=== PATIENT | female | born 1975 | race Caucasian/White ===

== ENCOUNTER 2017-10-01 02:50 | Emergency (ER) | payer SELFPAY ==
[~2017-10-01] VITALS: Ht 160 cm; Wt 74.0 kg
[~2017-10-01 02:50] MED LIST: DICL50 PO; HYDR-3533 PO; IBUP-238 PO; LEVO.15 PO; MEDR10 PO; MICR1TAB PO
[2017-10-01 02:52] VITALS: BP 160/92; PULSE 98; RESP 16; TEMP 98; O2SAT 99
[2017-10-01] MEDS ORDERED: MORPHINE SULFATE 2 MG/ML INJ IV PUSH ONE (03:30)
[2017-10-01] MEDS ORDERED: KETOROLAC TROMETHAMINE 30 MG/ML (IVP) VIAL IV PUSH ONE (03:30)
--- NOTE | 2017-10-01 04:41 | RADRPT ---
EXAM DATE/TIME: 10/01/2017 04:13 [facility] COMPARISON: SHOULDER LEFT LTD (2VWS), November 26, 2015, 23:23. INDICATIONS : Left shoulder pain. MEDICAL HISTORY : Dislocation of left shoulder. SURGICAL HISTORY : None. ENCOUNTER: Initial ACUITY: 1 day PAIN SCORE: 10/10 LOCATION: Left shoulder. FINDINGS: Two view examination of the left shoulder demonstrates anterior-inferior dislocation of the humeral h ead on the glenoid. The glenohumeral and acromioclavicular joints are maintained. Bony mineralizati on is normal. CONCLUSION: Anterior-inferior dislocation of the humeral head Frank Morales MD on October 01, 2017 at 4:39 Board Certified Radiologist. This report was verified electronically.
[2017-10-01 05:10] VITALS: O2SAT 100
[2017-10-01] MEDS ORDERED: PROPOFOL 200 MG/20 ML AMP IV ONE (05:15)
--- NOTE | 2017-10-01 05:30 | PD ---
HPI Chief Complaint: Injury Time Seen by Provider: 03:19 Travel History International Travel<30 days: No Contact w/Intl Traveler<30days: No Traveled to known affect area: No History of Present Illness HPI 42-year-old female came to the emergency room with history of left shoulder dislocation. Patient says this is her third time dislocating the same shoulder. She was playing with her dog when this happened. Last time was in 2012. Patient says she is in pain because of the dislocation on her left shoulder. She did not injure any other part of her body. [facility] Past Medical History Narrative Medical List of her past medical, surgical, social and family history is reviewed from the nursing note. Anemia: Yes Thyroid Disease: Yes ?: Not : 4 Para: 2 : 1 Past Surgical History Section: Yes (X 3) Social History Alcohol Use: Yes (2 XS WEEKLY) Tobacco Use: No Substance Use: No Allergies-Medications (Allergen,Severity, Reaction): Coded Allergies: sesame seed (Unverified Allergy, Intermediate, coughing, itchy throat, ) Comments List of her allergies reviewed from the nursing note. Reported Meds & Prescriptions Reported Meds & Active Scripts Active Lortab 5 mg/325 mg (Hydrocodone/Acetaminophen 5 mg/325 mg) 1 Tab 1-2 Tab PO Q6H PRN Voltaren (Diclofenac Sodium) 50 Mg Tabec 50 Mg PO TID Motrin (Ibuprofen) 800 Mg Tab 800 Mg PO TID Lortab 5 mg/325 mg (Hydrocodone/Acetaminophen 5 mg/325 mg) 1 Tab 1 Tab PO Q6H PRN Provera 10 Mg Tab (Medroxyprogesterone Acetate) 10 Mg Tab 10 Mg PO DAILY Reported Microgestin 1 mg/20 mcg 1 mg/20 mcg Tab 1 Tab PO DAILY Synthroid (Levothyroxine Sodium) 150 Mcg Tab 150 Mcg PO DAILY Narrative Medication List of her home medications reviewed from the nursing note. Review of Systems Except as stated in HPI: all other systems reviewed are Neg Musculoskeletal: Positive: Pain Physical Exam Narrative GENERAL: Awake, alert, moderate distress SKIN: Focused skin assessment warm/dry. HEAD: Atraumatic. Normocephalic. EYES: Pupils equal and round. No scleral icterus. No injection or drainage. ENT: No nasal bleeding or discharge. Mucous membranes pink and moist. NECK: Trachea midline. No JVD. CARDIOVASCULAR: Regular rate and rhythm. No murmur appreciated. RESPIRATORY: No accessory muscle use. Clear to auscultation. Breath sounds equal bilaterally. GASTROINTESTINAL: Abdomen soft, non-tender, nondistended. Hepatic and splenic margins not palpable. MUSCULOSKELETAL: Left shoulder deformity. No clubbing. No cyanosis. No edema. Distal neurovascular intact NEUROLOGICAL: Awake and alert. No obvious cranial nerve deficits. Motor grossly within normal limits. Normal speech. PSYCHIATRIC: Appropriate mood and affect; insight and judgment normal. Data Data Last Documented VS Vital Signs Date Time Temp Pulse Resp B/P (MAP) Pulse Ox O2 Delivery O2 Flow Rate FiO2 10/01/17 05:10 100 2.00 10/01/17 02:52 98.0 98 16 160/92 (114) Room Air Orders Orders Morphine Inj (Morphine Inj) (10/01/17 03:30) Ketorolac Inj (Toradol Inj) (10/01/17 03:30) Shoulder, Limited(2vws) (10/01/17 ) Propofol 200 Mg/20 Ml Inj (Diprivan 200 (10/01/17 05:15) Shoulder, Limited(2vws) (10/01/17 ) MDM Medical Decision Making Medical Screen Exam Complete: Yes Emergency Medical Condition: Yes Medical Record Reviewed: Yes Differential Diagnosis Shoulder dislocation, shoulder fracture Narrative Course 5:40 AM shoulder was relocated after patient got an x-ray which confirmed the dislocation without any fracture. Please refer to my procedure note. Currently she has a shoulder immobilizer in place. Awaiting for postreduction x -ray. Patient tolerated the procedure well. Procedures Procedure Narrative After the risks and benefits were discussed the following procedure was performed: MODERATE SEDATION: The patient was placed on a monitor worker and pulse oximetry. An ambu bag and suction was immediately available at bedside. The patient was monitored by the nurse. Oxygen saturation , heart rate and blood pressure were monitored. Procedural sedation was acheived using 100 mg of propofol. The patient was observed until awake and alert. Procedural Sedation time in attendance was 20 minutes. Shoulder dislocation reduction: Once the procedural sedation was adequately achieved traction countertraction method was applied and the shoulder was relocated. I felt the satisfactory clunk and the deformity was gone. Patient tolerated the procedure well. Sling and swathe was applied. EKG Prior to Arrival: No Diagnosis Primary Impression: Shoulder dislocation Qualified Codes: S43.005A - Unspecified dislocation of left shoulder joint, initial encounter Referrals: Primary Care Physician 3 days Additional Instructions: Keep the sling on for next 72 hours. After that slowly start exercising the arm at the shoulder joint little by little. Do not do any extreme motions. You should follow-up with your primary care. Return to the ER if the condition recurs. Med/Other Pt SpecificInfo: No Change to Meds Disposition: 01 DISCHARGE HOME Condition: Stable Makeda Harry MD Oct 01, 2017 05:30
--- NOTE | 2017-10-01 06:20 | RADRPT ---
EXAM DATE/TIME: 10/01/2017 05:45 [facility] COMPARISON: SHOULDER LEFT LTD (2VWS), October 01, 2017, 4:13. SHOULDER LEFT LTD (2VWS), November 26, 2015, 23:23 . SHOULDER LEFT COMPLETE (>2VWS), November 26, 2015, 22:07. INDICATIONS : Post reduction left shoulder. MEDICAL HISTORY : Dislocation of left shoulder. SURGICAL HISTORY : None. ENCOUNTER: Subsequent ACUITY: 1 day PAIN SCORE: 5/10 LOCATION: Left shoulder. FINDINGS: Two view examination of the left shoulder demonstrates no evidence of fracture or dislocation. The g lenohumeral and acromioclavicular joints are maintained. Bony mineralization is normal. CONCLUSION: Unremarkable limited examination of the left shoulder. Frank Morales MD on October 01, 2017 at 6:18 Board Certified Radiologist. This report was verified electronically.
[2017-10-01 06:30] VITALS: BP 116/74; PULSE 84; RESP 19; O2SAT 100
[2017-10-01 06:45] VITALS: BP 128/79
== END 2017-10-01 06:50 | disposition home or self-care (01) ==
LOC: NEPE 02:50
DX: S43.005A Unspecified dislocation of left shoulder joint, initial encounter (principal); D64.9 Anemia, unspecified; E07.9 Disorder of thyroid, unspecified; X58.XXXA Exposure to other specified factors, initial encounter; Z79.899 Other long term (current) drug therapy
CPT/HCPCS: 23650; 73030; 96374; 96375; 99152; 99153; 99285; J1885; J2270

== ENCOUNTER 2018-02-26 17:24 | Emergency (ER) | payer SELFPAY ==
[~2018-02-26] VITALS: Ht 160 cm; Wt 68.0 kg
[2018-02-26 17:26] VITALS: BP 130/79; PULSE 107; RESP 18; TEMP 99.1; O2SAT 96
[2018-02-26] MEDS ORDERED: LEVO150T7 PO (20:49)
[2018-02-26 20:57] VITALS: BP 120/73; PULSE 89; RESP 18; TEMP 98.6; O2SAT 100
--- NOTE | 2018-02-26 21:14 | PD ---
HPI Chief Complaint: Cold / Flu Symptoms Time Seen by Provider: 21:03 Travel History International Travel<30 days: No Contact w/Intl Traveler<30days: No Traveled to known affect area: No History of Present Illness HPI 43-year-old female here for evaluation of cough, nasal congestion, generalized malaise, fever. Symptoms have been going on for about 2 days. She has been taking Tylenol, ibuprofen, Robitussin with only mild relief of symptoms. She had a couple episodes of diarrhea. No abdominal pain. No vomiting. Cough is nonproductive. PFSH Past Medical History Anemia: Yes Diminished Hearing: No Immunizations Current: Yes Thyroid Disease: Yes Influenza Vaccination: No ?: Unknown LMP: 02/16/18 : 4 Para: 2 : 1 Past Surgical History Surgical History: No Previous Surgery Section: Yes (X 3) Social History Alcohol Use: Yes (2 XS WEEKLY) Tobacco Use: No Substance Use: No Allergies-Medications (Allergen,Severity, Reaction): Coded Allergies: sesame seed (Unverified Allergy, Intermediate, coughing, itchy throat, ) amoxicillin (Verified Allergy, Unknown, 02/26/18) Reported Meds & Prescriptions Reported Meds & Active Scripts Active Reported Levothyroxine (Levothyroxine Sodium) 150 Mcg Tab 150 Mcg PO DAILY Review of Systems Except as stated in HPI: all other systems reviewed are Neg Physical Exam Narrative GENERAL: Well-developed, well-nourished, comfortable, no apparent distress. SKIN: Focused skin assessment warm/dry. No rash. HEAD: Atraumatic. Normocephalic. EYES: Pupils equal and round. No scleral icterus. No injection or drainage. ENT: Mucous membranes pink and moist. NECK: Trachea midline. No JVD. No nuchal rigidity. CARDIOVASCULAR: Regular rate and rhythm. RESPIRATORY: No accessory muscle use. Clear to auscultation. Breath sounds equal bilaterally. GASTROINTESTINAL: Abdomen soft, non-tender, nondistended. MUSCULOSKELETAL: No obvious deformities. No clubbing. No cyanosis. No edema. NEUROLOGICAL: Awake and alert. No obvious cranial nerve deficits. Motor grossly within normal limits. Normal speech. PSYCHIATRIC: Appropriate mood and affect; insight and judgment normal. Data Data Last Documented VS Vital Signs Date Time Temp Pulse Resp B/P (MAP) Pulse Ox O2 Delivery O2 Flow Rate FiO2 02/26/18 21:32 99 Room Air 02/26/18 20:57 98.6 89 18 Orders Orders Complete Blood Count With Diff (02/26/18 21:07) Comprehensive Metabolic Panel (02/26/18 21:07) Iv Access Insert/Monitor (02/26/18 21:07) Ecg Monitoring (02/26/18 21:07) Oximetry (02/26/18 21:07) Sodium Chloride 0.9% Flush (Ns Flush) (02/26/18 21:15) Influenzae A/B Antigen (02/26/18 21:07) Group A Rapid Strep Screen (02/26/18 21:07) Sodium Chlor 0.9% 1000 Ml Inj (Ns 1000 M (02/26/18 21:15) Chest, Single Ap (02/26/18 ) Strep Culture (Group A) (02/26/18 21:30) Oseltamivir (Tamiflu) (02/26/18 22:15) Labs Laboratory Tests Test 02/26/18 21:30 White Blood Count 3.6 TH/MM3 Red Blood Count 3.54 MIL/MM3 Hemoglobin 9.3 GM/DL Hematocrit 28.2 % Mean Corpuscular Volume 79.6 FL Mean Corpuscular Hemoglobin 26.3 PG Mean Corpuscular Hemoglobin Concent 33.1 % Red Cell Distribution Width 16.8 % Platelet Count 274 TH/MM3 Mean Platelet Volume 8.1 FL Neutrophils (%) (Auto) 64.6 % Lymphocytes (%) (Auto) 9.7 % Monocytes (%) (Auto) 11.5 % Eosinophils (%) (Auto) 10.5 % Basophils (%) (Auto) 3.7 % Neutrophils # (Auto) 2.3 TH/MM3 Lymphocytes # (Auto) 0.3 TH/MM3 Monocytes # (Auto) 0.4 TH/MM3 Eosinophils # (Auto) 0.4 TH/MM3 Basophils # (Auto) 0.1 TH/MM3 CBC Comment DIFF FINAL Differential Comment Blood Urea Nitrogen 4 MG/DL Creatinine 0.76 MG/DL Random Glucose 91 MG/DL Total Protein 8.3 GM/DL Albumin 4.2 GM/DL Calcium Level 8.4 MG/DL Alkaline Phosphatase 107 U/L Aspartate Amino Transf (AST/SGOT) 29 U/L Alanine Aminotransferase (ALT/SGPT) 25 U/L Total Bilirubin 0.2 MG/DL Sodium Level 138 MEQ/L Potassium Level 4.0 MEQ/L Chloride Level 105 MEQ/L Carbon Dioxide Level 27.5 MEQ/L Anion Gap 6 MEQ/L Estimat Glomerular Filtration Rate 82 ML/MIN MDM Medical Decision Making Medical Screen Exam Complete: Yes Emergency Medical Condition: Yes Differential Diagnosis Viral illness, influenza, URI, pneumonia Narrative Course Vital signs reviewed. CBC: WBC 3.6, hemoglobin 9.3, hematocrit 28.2, monocytes 11.5%, eosinophils 10.5 %. The patient has history of anemia. Leukopenia is likely secondary to influenza. CMP is unremarkable. Chest x-ray shows no acute disease. Influenza B positive. Patient was made aware of all findings. She is resting comfortably. Her symptoms started 2 days ago, therefore she will be started on Tamiflu. She was advised to stay hydrated with plenty of fluids and to keep fever under control with Tylenol and ibuprofen. She is overall well-appearing and is stable for discharge home with outpatient follow-up with a primary care physician this week. She was informed on when to return to the emergency department patient verbalizes understanding and agreement with plan. Diagnosis Primary Impression: Influenza B Referrals: [facility] 3 days Primary Care Physician 3 days Additional Instructions: Follow-up with a primary care physician this week. Stay hydrated with plenty of fluids. Keep fever under control with Tylenol and ibuprofen. Return to the emergency department for worsening symptoms or any other concerns. Scripts Oseltamivir (Tamiflu) 75 Mg Cap 75 MG PO BID for Mgmt Viral Infection for 5 Days, #10 CAP 0 Refills Prov: Rik Tenorio MD 02/26/18 Disposition: 01 DISCHARGE HOME Condition: Stable Rik Tenorio MD Feb 26, 2018 21:14
[2018-02-26] MEDS ORDERED: SODIUM CHLOR 0.9% 1000 ML INJ 1,000 ML IV ONE (21:15)
[2018-02-26] MEDS ORDERED: SODIUM CHLORIDE 0.9% FLUSH 10 ML FLUSH IV FLUSH PRN (21:15)
[2018-02-26 21:32] VITALS: O2SAT 99
--- NOTE | 2018-02-26 21:36 | RADRPT ---
EXAM DATE/TIME: 02/26/2018 21:13 [facility] COMPARISON: No previous studies available for comparison. INDICATIONS : Shortness of breath and cough starting today. MEDICAL HISTORY : None. SURGICAL HISTORY : None. ENCOUNTER: Initial ACUITY: 1 day PAIN SCORE: 0/10 LOCATION: Bilateral chest FINDINGS: A single view of the chest demonstrates the lungs to be symmetrically aerated without evidence of mas s, infiltrate or effusion. The cardiomediastinal contours are unremarkable. Osseous structures are intact. CONCLUSION: No acute disease. Julian Antunez MD on February 26, 2018 at 21:34 Board Certified Radiologist. This report was verified electronically.
[2018-02-26 21:48] LABS: AUTOMATED NEUTROPHIL # 2.3 TH/MM3 (1.8-7.7); BASOPHIL # 0.1 TH/MM3 (0-0.2); BASOPHIL % 3.7 % (0.0-2.0); EOSINOPHIL # 0.4 TH/MM3 (0-0.4); EOSINOPHIL % 10.5 % (0.0-4.0); HEMATOCRIT 28.2 % (35.0-46.0); HEMOGLOBIN 9.3 GM/DL (11.6-15.3); LYMPH % 9.7 % (9.0-44.0); LYMPHOCYTE # 0.3 TH/MM3 (1.0-4.8); MEAN CELL VOLUME 79.6 FL (80.0-100.0); MEAN CORPUSCULAR HEMOGLOBIN 26.3 PG (27.0-34.0); MEAN CORPUSCULAR HGB CONC 33.1 % (32.0-36.0); MEAN PLATELET VOLUME 8.1 FL (7.0-11.0); MONO % 11.5 % (0.0-8.0); MONOCYTE # 0.4 TH/MM3 (0-0.9); NEUT % 64.6 % (16.0-70.0); PLATELET COUNT 274 TH/MM3 (150-450); RED BLOOD COUNT 3.54 MIL/MM3 (4.00-5.30); RED CELL DISTRIBUTION WIDTH 16.8 % (11.6-17.2); WHITE BLOOD COUNT 3.6 TH/MM3 (4.0-11.0)
[2018-02-26 22:06] LABS: ALBUMIN 4.2 GM/DL (3.4-5.0); ALT (GPT) 25 U/L (10-53); AST (GOT) 29 U/L (15-37); BICARBONATE 27.5 MEQ/L (21.0-32.0); BLOOD UREA NITROGEN 4 MG/DL (7-18); CALCIUM 8.4 MG/DL (8.5-10.1); CHLORIDE 105 MEQ/L (98-107); CREATININE 0.76 MG/DL (0.50-1.00); GLOMERULAR FILTRATION RATE 82 ML/MIN (>89); GLUCOSE,RANDOM 91 MG/DL (74-106); SODIUM (NA) 138 MEQ/L (136-145)
[2018-02-26 22:09] LABS: ALKALINE PHOSPHATASE 107 U/L (45-117); TOTAL BILIRUBIN ADULT 0.2 MG/DL (0.2-1.0); TOTAL PROTEIN 8.3 GM/DL (6.4-8.2)
[2018-02-26] MEDS ORDERED: OSELTAMIVIR PHOSPHATE 75 MG CAP PO ONE (22:15)
[2018-02-26] MEDS ORDERED: OSEL75 PO (22:17)
== END 2018-02-26 22:42 | disposition home or self-care (01) ==
LOC: NEPD 17:24
DX: J10.1 Influenza due to other identified influenza virus with other respiratory manifestations (principal); R19.7 Diarrhea, unspecified; D64.9 Anemia, unspecified
CPT/HCPCS: 71045; 80053; 85025; 87081; 87804; 87880; 96360; 99284; J7030